=== PATIENT | female | born 2000 | race African-American/Black ===

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

== ENCOUNTER 2022-04-05 14:05 | Inpatient (IN) ==
[2022-04-05] MEDS: LACTATED RINGERS 1,000 ML IV SCH ×2 (15:38→22:30)
[2022-04-05] MEDS: ONDANSETRON 4 MG/2 ML VIAL IV PRN (15:43)
[2022-04-05] MEDS: MEPERIDINE 50 MG/1 ML VIAL IV PRN ×2 (15:45→18:26)
[2022-04-06] MEDS: ONDANSETRON 4 MG/2 ML VIAL IV PRN ×2 (05:09→12:26)
[2022-04-06] MEDS: MEPERIDINE 50 MG/1 ML VIAL IV PRN (05:10)
[2022-04-06] MEDS: LACTATED RINGERS 1,000 ML IV SCH (06:54)
[2022-04-06] MEDS ORDERED: OXYTOCIN/LR 20 UNIT/1,000 ML BAG IV ONE ×2 (07:28→13:11)
[2022-04-06] MEDS ORDERED: METHYLERGONOVINE 0.2 MG/1 ML AMP IM PRN (07:28)
[2022-04-06] MEDS ORDERED: miSOPROStoL 200 MCG TABLET RECTAL PRN (07:28)
[2022-04-06] MEDS ORDERED: TRANEXAMIC ACID 1,000 MG in SODIUM CHLORIDE 0.9% 100 ML IV PRN (07:28)
[2022-04-06] MEDS ORDERED: CARBOPROST TROMETHAMINE 250 MCG/ML AMP IM PRN (07:28)
[2022-04-06] MEDS ORDERED: AMPICILLIN INJ 2,000 MG in SODIUM CHLORIDE 0.9% 100 ML IV ONE (07:29)
[2022-04-06] MEDS ORDERED: OXYTOCIN/LR 20 UNIT/1,000 ML BAG IV SCH (07:30)
[2022-04-06 07:55] LABS: Basophils % 0.2 % (0.0-0.8); Eosinophils # 0.1 10*3/uL (0.0-0.87); Eosinophils % 0.8 % (0.00-10.9); Hematocrit 34.4 VOL% (35.7-47.0); Hemoglobin 11.5 GM/DL (12.0-16.0); Immature Granulocytes % 0.5 %; Immature Granulocytes Absolute 0.07 #; Lymphocytes # 2.3 10*3/uL (1.4-4.0); Lymphocytes % 18.3 % (21.3-54.2); Mean Corpuscular HGB Conc 33.4 GM/DL (32-36); Mean Corpuscular Volume 91.5 FL (87-102); Mean Platelet Volume 10.2 FL (9.6-12.0); Monocytes # 0.9 10*3/uL (0.11-0.8); Monocytes % 6.8 % (1.7-12.7); Neutrophils % 73.4 % (38.7-73.9); Platelet Count 288 T/CUMM (130-400); Red Blood Count 3.76 MC/CUMM (3.8-5.5); White Blood Count 12.8 T/CUMM (4-12)
[2022-04-06 08:18] LABS: Albumin 2.8 G/DL (3.4-5.0); Bilirubin,Total 0.7 MG/DL (0.20-1.00); Calcium 8.7 MG/DL (8.5-10.1); Osmolality,Calculated 270.7 MOS/KG (273-304); Potassium 3.8 MMOL/L (3.5-5.1); Total Protein 6.4 G/DL (6.4-8.2)
[2022-04-06 08:28] LABS: Rubella Antibody IgG Result Reactive (NonReactive)
[2022-04-06 08:54] LABS: HIV Antigen/Antibody Result Nonreactive (Nonreactive)
[2022-04-06] MEDS ORDERED: CITRIC ACID/SODIUM CITRATE 30 ML UDCUP PO ONE (09:17)
[2022-04-06] MEDS ORDERED: NALOXONE 0.4 MG/ML VIAL IV PRN (09:17)
[2022-04-06] MEDS ORDERED: PROMETHAZINE 25 MG/1 ML VIAL IM ONE (09:17)
[2022-04-06] MEDS ORDERED: ePHEDrine 50 MG/ML VIAL IV PRN (09:17)
[2022-04-06] MEDS ORDERED: hydrOXYzine HCL 25 MG/1 ML VIAL IM PRN (09:17)
[2022-04-06] MEDS ORDERED: diphenhydrAMINE 50 MG/1 ML VIAL IV PRN ×2 (09:17)
[2022-04-06] MEDS ORDERED: FAMOTIDINE 20 MG/2 ML VIAL IV ONE (09:17)
[2022-04-06] MEDS ORDERED: LACTATED RINGERS 1,000 ML IV ONE (09:17)
[2022-04-06] MEDS ORDERED: fentaNYL 2 MCG/ROPIV 0.2% EPID 100 ML EPIDURAL SCH (09:30)
[2022-04-06 09:44] LABS: RPR Confirm - Less than 1 yr REACTIVE (Nonreactive)
[2022-04-06] MEDS ORDERED: SODIUM CHLORIDE 0.9% 0 ML IV ONE (10:30)
[2022-04-06] MEDS ORDERED: miSOPROStoL 200 MCG TABLET ONE (10:30)
[2022-04-06] MEDS ORDERED: TRANEXAMIC ACID 1,000 MG/10 ML VIAL ONE (10:30)
[2022-04-06] MEDS ORDERED: CARBOPROST TROMETHAMINE 250 MCG/ML AMP IM ONE (10:30)
[2022-04-06] MEDS ORDERED: METHYLERGONOVINE 0.2 MG/1 ML AMP ONE (10:30)
[2022-04-06 10:48] LABS: Cord Venous Blood HCO3 23.7 MMOL/L; Cord Venous Blood PCO2 38.7 MMHG
[2022-04-06] MEDS ORDERED: AMPICILLIN INJ 1,000 MG in SODIUM CHLORIDE 0.9% 100 ML IV SCH (12:00)
[2022-04-06] MEDS ORDERED: BENZOCAINE 20%/MENTHOL 0.5% SPRAY 56 GM CAN TOP PRN (13:11)
[2022-04-06] MEDS ORDERED: RHO(D) IMMUNE GLOBULIN 300 MCG SYRINGE IM ONE (13:11)
[2022-04-06] MEDS ORDERED: WITCH HAZEL PADS 100/JAR TOP PRN (13:11)
[2022-04-06] MEDS ORDERED: DIPH/TET/ACEL PERT BOOSTER VACCINE 0.5 ML VIAL IM ONE (13:11)
[2022-04-06] MEDS ORDERED: LANOLIN 50% CREAM 0.3 OZ TUBE TOP PRN (13:11)
[2022-04-06] MEDS ORDERED: MEASLES/MUMPS/RUBELLA VACCINE 0.5 ML VIAL SUBCUT ONE (13:11)
[2022-04-06] MEDS ORDERED: oxyCODONE/ACETAMINOPHEN 5-325 MG TABLET PO PRN (13:11)
[2022-04-06] MEDS ORDERED: ACETAMINOPHEN 325 MG TABLET PO PRN (13:11)
[2022-04-06] MEDS ORDERED: HYDROCORTISONE 2.5% RECTAL CREAM 30 GM TUBE TOP PRN (13:11)
[2022-04-06] MEDS ORDERED: BISACODYL 10 MG SUPP RECTAL PRN (13:11)
[2022-04-06] MEDS: IBUPROFEN 800 MG TABLET PO PRN ×2 (14:13→21:01)
[2022-04-06] MEDS: oxyCODONE/ACETAMINOPHEN 5-325 MG TABLET PO PRN ×2 (15:19→21:01)
[2022-04-06] MEDS: DOCUSATE SODIUM 100 MG CAPSULE PO SCH (21:00)
[2022-04-07] MEDS: oxyCODONE/ACETAMINOPHEN 5-325 MG TABLET PO PRN ×3 (04:20→22:07)
[2022-04-07 05:14] LABS: Basophils % 0.2 % (0.0-0.8); Eosinophils # 0.1 10*3/uL (0.0-0.87); Eosinophils % 0.8 % (0.00-10.9); Hematocrit 32.1 VOL% (35.7-47.0); Hemoglobin 10.4 GM/DL (12.0-16.0); Immature Granulocytes % 0.7 %; Lymphocytes # 3.1 10*3/uL (1.4-4.0); Lymphocytes % 21.2 % (21.3-54.2); Mean Corpuscular HGB Conc 32.4 GM/DL (32-36); Mean Corpuscular Volume 91.5 FL (87-102); Mean Platelet Volume 10.7 FL (9.6-12.0); Monocytes % 6.4 % (1.7-12.7); Neutrophils % 70.7 % (38.7-73.9); Platelet Count 298 T/CUMM (130-400); Red Blood Count 3.51 MC/CUMM (3.8-5.5); White Blood Count 14.8 T/CUMM (4-12)
[2022-04-07] MEDS: IBUPROFEN 800 MG TABLET PO PRN ×2 (10:38→22:08)
[2022-04-07] MEDS: DOCUSATE SODIUM 100 MG CAPSULE PO SCH ×2 (10:38→21:12)
[2022-04-08] MEDS: DOCUSATE SODIUM 100 MG CAPSULE PO SCH ×2 (07:48→13:42)
[2022-04-08] MEDS: oxyCODONE/ACETAMINOPHEN 5-325 MG TABLET PO PRN ×2 (07:49→17:20)
[2022-04-08] MEDS ORDERED: ONDANSETRON 4 MG TABLET PO ONE ×2 (08:05→17:28)
[2022-04-08 08:09] VITALS: BP 131/70
== END 2022-04-08 18:20 | disposition home or self-care (01) | DRG 560 ==
LOC: N.LDOUT 14:05 → N.LD 14:07 → N.OB 04-06 12:45
PROVIDERS: ADMIT Obstetrics & Gynecology; ATTEND Obstetrics & Gynecology